=== PATIENT | male | born 1985 | race Caucasian/White ===

== ENCOUNTER 2016-12-03 20:01 | Emergency (ER) | payer SELFPAY ==
[~2016-12-03 20:01] MED LIST: ATARAX,VISTARIL10 MG PO; CLINDAMYCIN HC300 MG PO; CLONAZEPAM0.5 M2 PO; MEDROL DOSEPAK4 MG PO; MOTRIN800 MG PO; NAPROSYN500 MG PO; NORFLEX100 MG PO; TRAZODONE50 MG PO; ULTRAM50 MG PO; VIVITROL380 MG IM; XANAX1 MG PO
== END 2016-12-03 21:11 | disposition left against medical advice (07) ==
LOC: ED 20:01
DX: T40.1X4A Poisoning by heroin, undetermined, initial encounter (principal); Z53.21 Procedure and treatment not carried out due to patient leaving prior to being seen by health care provider

== ENCOUNTER 2018-10-24 23:14 | Emergency (ER) | payer OTHER ==
[~2018-10-24] VITALS: Ht 170.1 cm; Wt 68.9 kg
== END 2018-10-25 00:46 | disposition home or self-care (01) ==
LOC: ED 23:14
DX: M54.2 Cervicalgia (principal); M54.6 Pain in thoracic spine; R51 Headache; V47.5XXA Car driver injured in collision with fixed or stationary object in traffic accident, initial encounter; Y93.I9 Activity, other involving external motion; Y92.488 Other paved roadways as the place of occurrence of the external cause; Y99.8 Other external cause status

== ENCOUNTER 2021-03-22 21:09 | Emergency (ER) | payer SELFPAY ==
[~2021-03-22] VITALS: Wt 65.8 kg
== END 2021-03-22 22:55 | disposition left against medical advice (07) ==
LOC: ED 21:09
DX: R69 Illness, unspecified (principal); Z53.21 Procedure and treatment not carried out due to patient leaving prior to being seen by health care provider